=== PATIENT | female | born 1985 | race Caucasian/White ===

== ENCOUNTER 2019-08-20 19:37 | Emergency (ER) | payer MEDICAID ==
[~2019-08-20] VITALS: Ht 152.4 cm; Wt 84.4 kg
[2019-08-20 19:55] VITALS: BP 114/65
--- NOTE | 2019-08-20 19:55 | NUR ---
TO BED # 07 AMBULATORY
--- NOTE | 2019-08-20 20:30 | NUR ---
33 Y/O FEMALE C/O FLU LIKE SX, COUGH X 3 DAYS. LUNG SOUNDS RONCHI ON BILAT UPPER LOBES, DIMINISHED IN BILAT LOWER LOBES. NO RESP DISTRESS NOTED. PT STATES SHE HAS SOB. RESPIRATIONS ARE EQUAL AND UNLABORED. RUNNY NOSE PRESENT. PRODUCTIVE COUGH PRESENT. VSS. SPO2 100% RA. PT STATES SHE HAD 2 VOMITTING EPISODES. PT IS 2 MONTHS . FIFTH . PT C/O CHEST PAIN WHEN TAKING DEEP RESPIRATIONS AND WITH COUGHING. RATES PAIN 8/10. A & O X4. AIRWAY IS PATENT AND CLEAR. NKA. NO PMH.
--- NOTE | 2019-08-20 20:50 | NUR ---
FLU SWAB SENT T0 LAB.
[2019-08-20] MEDS ORDERED: DICYCLOMINE HCL LIQUID 20 MG, ALUMINUM HYD/MAG/SIMETHICONE 30 ML, LIDOCAINE VISCOUS 2% ... PO ONE ×3 (20:55)
[2019-08-20] MEDS ORDERED: DICYCLOMINE HCL LIQUID 10 MG/5 ML UDC ONE (20:56)
[2019-08-20] MEDS ORDERED: ALUMINUM HYD/MAG/SIMETHICONE 30 ML UDC ONE (20:56)
[2019-08-20] MEDS ORDERED: LIDOCAINE VISCOUS 2% 20 ML UDC ONE (20:56)
[2019-08-20 21:19] LABS: BASOPHILS % (AUTO) 0.3 % (0.0-2.0); EOSINOPHILS # (AUTO) 0.8 K/uL (0-0.4); EOSINOPHILS % (AUTO) 9.3 % (0.0-4.0); HEMATOCRIT 32.5 % (36-48); HEMOGLOBIN 10.8 g/dL (12.0-16.0); LYMPHOCYTES # (AUTO) 2.4 K/uL (2.5-16.5); LYMPHOCYTES % (AUTO) 29.1 % (20.5-51.1); MEAN CORPUSCULAR HEMOGLOBIN 24 pg (27-31); MEAN CORPUSCULAR HGB CONC 33 g/dL (33-37); MEAN CORPUSCULAR VOLUME 71.1 fL (80-94); MONOCYTES # (AUTO) 0.6 K/uL (0.8-1.0); MONOCYTES % (AUTO) 7.6 % (1.7-9.3); NEUTROPHILS # (AUTO) 4.5 K/uL (1.8-7.7); NEUTROPHILS % (AUTO) 53.7 % (42.2-75.2); PLATELET COUNT (AUTO) 375 K/uL (140-450); RED BLOOD CELL COUNT(AUTO) 4.57 MIL/uL (4.20-5.40); RED CELL DISTRIBUTION WIDTH 15.3 % (11.6-13.7); WHITE BLOOD COUNT (AUTO) 8.4 K/uL (4.8-10.8)
[2019-08-20 21:29] LABS: PROTHROMBIN TIME 9.6 secs (10.8-13.4)
[2019-08-20 21:30] LABS: ALBUMIN 3.4 g/dL (3.4-5.0); ANION GAP 12.5 (8-16); CARBON DIOXIDE 28.7 mmol/L (21-32); CREATININE 0.5 mg/dL (0.6-1.3); POTASSIUM 4.2 mmol/L (3.5-5.1); TOTAL BILIRUBIN 0.2 mg/dL (0.0-1.0)
[2019-08-20] MEDS ORDERED: ACETAMINOPHEN EXTRA STRENGTH 500 MG TAB PO ONE (22:15)
[2019-08-20 23:04] VITALS: BP 114/65
--- NOTE | 2019-08-20 23:04 | NUR ---
Patient discharged with v/s stable. Written and verbal after care instructions given and explained. Patient verbalized understanding. Ambulatory with steady gait. All questions addressed prior to discharge. Advised to follow up with PMD.
== END 2019-08-20 23:04 | disposition home or self-care (01) ==
LOC: MED 19:37
DX: O98.511 Other viral diseases complicating pregnancy, first trimester (principal)
CPT/HCPCS: 36415; 80053; 83880; 84484; 85025; 85610; 85730; 87804; 93005; 99284

== ENCOUNTER 2019-08-23 10:08 | Emergency (ER) | payer MEDICAID ==
[~2019-08-23] VITALS: Ht 152.4 cm; Wt 80.0 kg
[2019-08-23 10:31] VITALS: BP 120/77
--- NOTE | 2019-08-23 11:57 | NUR ---
PT AMBULATED TO ER BED 1
--- NOTE | 2019-08-23 12:06 | NUR ---
33/F TO ED FROM [facility] FOR VAGINAL BLEEDING. PT REPORTS USING 2 PADS/DAY. BLEEDING CONTROLLED AT THIS TIME. PT IS WITH LMP OF 06/07/2019, . NO DISTRESS NOTED. IN BED FOR MSE.
[2019-08-23 12:50] LABS: BASOPHILS % (AUTO) 0.6 % (0.0-2.0); EOSINOPHILS # (AUTO) 0.6 K/uL (0-0.4); EOSINOPHILS % (AUTO) 8.5 % (0.0-4.0); HEMATOCRIT 34.6 % (36-48); HEMOGLOBIN 11.3 g/dL (12.0-16.0); LYMPHOCYTES # (AUTO) 1.5 K/uL (2.5-16.5); LYMPHOCYTES % (AUTO) 21.4 % (20.5-51.1); MEAN CORPUSCULAR HEMOGLOBIN 24 pg (27-31); MEAN CORPUSCULAR HGB CONC 33 g/dL (33-37); MEAN CORPUSCULAR VOLUME 72.4 fL (80-94); MONOCYTES # (AUTO) 0.5 K/uL (0.8-1.0); MONOCYTES % (AUTO) 7.2 % (1.7-9.3); NEUTROPHILS # (AUTO) 4.5 K/uL (1.8-7.7); NEUTROPHILS % (AUTO) 62.3 % (42.2-75.2); PLATELET COUNT (AUTO) 367 K/uL (140-450); RED BLOOD CELL COUNT(AUTO) 4.78 MIL/uL (4.20-5.40); RED CELL DISTRIBUTION WIDTH 15.6 % (11.6-13.7); WHITE BLOOD COUNT (AUTO) 7.2 K/uL (4.8-10.8)
--- NOTE | 2019-08-23 12:55 | NUR ---
US AT BEDSIDE.
[2019-08-23 13:58] LABS: APPEARANCE,URINE CLEAR (CLEAR); BILIRUBIN,URINE NEGATIVE (NEGATIVE); BLOOD, URINE 3+ (NEGATIVE); COLOR,URINE YELLOW (YELLOW); LEUKOCYTE ESTERASE ,URINE NEGATIVE (NEGATIVE); NITRITE, URINE NEGATIVE (NEGATIVE); PH,URINE 5.5 (5.0-9.0); UGLUCOSE NEGATIVE (NEGATIVE)
[2019-08-23 14:20] VITALS: BP 118/68
[2019-08-23 14:38] LABS: RBC,URINE 80-100 /HPF (0-5)
[2019-08-23 14:39] LABS: WBC,URINE 0-5 /HPF (0-5)
== END 2019-08-23 14:27 | disposition home or self-care (01) ==
LOC: MED 10:08
DX: O20.0 Threatened abortion (principal); Z3A.08 8 weeks gestation of pregnancy; Z88.0 Allergy status to penicillin
CPT/HCPCS: 36415; 76817; 81001; 84702; 85025; 86900; 86901; 99284; Q0092

== ENCOUNTER 2021-01-16 21:48 | Emergency (ER) | payer MEDICAID ==
[~2021-01-16] VITALS: Ht 149.9 cm; Wt 79.8 kg
[2021-01-16 21:58] VITALS: BP 136/65
[2021-01-16] MEDS ORDERED: KETOROLAC 60 MG/2 ML VIAL IM ONE (22:15)
--- NOTE | 2021-01-16 22:20 | NUR ---
PT BIB SELF FOR C/O 10/10 PAIN TO BILATERAL GREAT TOE THAT RADIATES TO LEO. PAIN IS DESCRIBED "BURNING" X 2 DAYS. AMBULATORY. BILATERAL PEDAL PULSES EQUAL AND STRONG. SKIN IS WARM, DRY AND INTACT. DENIES INJURY. MED HX: DENIES ALLERGIES PENICILLIN
[2021-01-16] MEDS ORDERED: IBUP-2213 PO (23:04)
== END 2021-01-16 23:33 | disposition home or self-care (01) ==
LOC: MED 21:48
DX: M79.671 Pain in right foot (principal); M79.672 Pain in left foot; R11.0 Nausea; Z88.0 Allergy status to penicillin; Z98.890 Other specified postprocedural states
CPT/HCPCS: 96372; 99283; J1885

== ENCOUNTER 2021-11-17 19:33 | Emergency (ER) | payer MEDICAID ==
[~2021-11-17] VITALS: Ht 147.3 cm; Wt 83.0 kg
[~2021-11-17 19:33] MED LIST: IBUP-2213 PO
[2021-11-17 19:37] VITALS: BP 97/62
--- NOTE | 2021-11-17 19:44 | NUR ---
EKG PERFORMED IN TRIAGE
--- NOTE | 2021-11-17 19:48 | NUR ---
AMBULATORY TO BED 5
--- NOTE | 2021-11-17 20:06 | NUR ---
36 yo/f presents to ed w c/o chest pain 8/10 pressure radiating to L chest and c/o "lung on L side hurting" intermitent pain x2 days, + sob, + body rash and itching/burning x1 hour, +diarrhea, + chills, + congestion x3 days. lung sounds clear, pt denies fevers, n/v. pt took tussin x2 hours ago w/o relief. ermd made aware of pt symptoms. pmh: denies allergies: penicillin
--- NOTE | 2021-11-17 20:16 | NUR ---
ermd assessing pt
--- NOTE | 2021-11-17 20:18 | NUR ---
X-Ray at bedside.
--- NOTE | 2021-11-17 20:21 | NUR ---
pt refused to provide urine sample at this time. pt refusing refusing preg test, reports she is not and wants the xray done w/o preg test.
--- NOTE | 2021-11-17 20:27 | NUR ---
Dr. Boyce examining patient.
[2021-11-17] MEDS ORDERED: diphenhydrAMINE 50 MG CAP PO ONE (20:50)
[2021-11-17] MEDS ORDERED: predniSONE 20 MG TAB PO ONE (20:50)
[2021-11-17] MEDS ORDERED: FAMOTIDINE 20 MG TAB PO ONE (20:50)
--- NOTE | 2021-11-17 21:01 | NUR ---
flu swab collected and sent to lab.
--- NOTE | 2021-11-17 21:39 | NUR ---
pt reports symptoms have resolved. denies chest pain, sob, itching/burning or ongoing rash. breathing even and unlabored. will continue to monitor.
[2021-11-17] MEDS ORDERED: PRED20TA5 PO (23:41)
[2021-11-17] MEDS ORDERED: DIPH25TA53 PO (23:41)
[2021-11-17] MEDS ORDERED: EPIN1KIT31 IM (23:41)
--- NOTE | 2021-11-18 00:01 | NUR ---
Dr. Boyce at bedside
[2021-11-18 00:08] VITALS: BP 112/53
--- NOTE | 2021-11-18 00:08 | NUR ---
Patient discharged with v/s stable. Written and verbal after care instructions given and explained. Patient alert, oriented and verbalized understanding of instructions. Ambulatory with steady gait. All questions addressed prior to discharge. ID band removed. Patient advised to follow up with PMD. Rx of benadryl, epipen, deltasone given. Patient educated on indication of medication including possible reaction and side effects. Opportunity to ask questions provided and answered.
== END 2021-11-18 00:08 | disposition home or self-care (01) ==
LOC: MED 19:33
DX: R21 Rash and other nonspecific skin eruption (principal); R05.9 Cough, unspecified; R19.7 Diarrhea, unspecified; R06.02 Shortness of breath; Z79.899 Other long term (current) drug therapy; Z79.1 Long term (current) use of non-steroidal anti-inflammatories (NSAID); Z88.0 Allergy status to penicillin
CPT/HCPCS: 71045; 87804; 93005; 99285; J7512; Q0092; Q0163